=== PATIENT | male | born 1950 | race Two or more races ===

== ENCOUNTER 2018-12-25 17:00 | Emergency (ER) | payer MEDICARE ==
[~2018-12-25] VITALS: Ht 172.7 cm; Wt 108.9 kg
[~2018-12-25 17:00] MED LIST: AMLO5TAB92; DULO60CA41 PO; LABE300T3 PO; LISI20TA PO; SPIR25TA PO
[2018-12-25 17:05] VITALS: BP_SYST 114
--- NOTE | 2018-12-25 17:13 | NUR ---
Patient to ER bed 05 to gown for evaluation. Side rails up. Report given to SHAHID SANCHEZ
[2018-12-25] MEDS ORDERED: NACL 0.9% 1,000 ML IV ONE ×2 (17:15→19:15)
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
--- NOTE | 2018-12-25 17:35 | NUR ---
ER Dr. Cancino at bedside examining patient.
[2018-12-25 17:40] LABS: BASOPHILS # (AUTO) 0.1 K/uL (0.0-0.2); BASOPHILS % (AUTO) 0.7 % (0.0-2.0); EOSINOPHILS # (AUTO) 0.2 K/uL (0.0-0.4); EOSINOPHILS % (AUTO) 2.8 % (0.0-4.0); HEMATOCRIT 39.3 % (36-54); HEMOGLOBIN 13.6 g/dL (14.0-18.0); LYMPHOCYTES # (AUTO) 1.9 K/uL (1.0-5.5); LYMPHOCYTES % (AUTO) 24.9 % (20.5-51.5); MEAN CORPUSCULAR HEMOGLOBIN 32 pg (27-31); MEAN CORPUSCULAR HGB CONC 35 % (32-36); MEAN CORPUSCULAR VOLUME 92 fL (79.0-98.0); MONOCYTES # (AUTO) 0.7 K/uL (0.0-1.0); MONOCYTES % (AUTO) 8.8 % (1.7-9.3); NEUTROPHILS # (AUTO) 4.9 K/uL (1.8-7.7); NEUTROPHILS % (AUTO) 62.8 % (40.0-70.0); PLATELET COUNT (AUTO) 198 K/uL (130-430); RED BLOOD CELL COUNT(AUTO) 4.25 MIL/uL (4.2-6.2); RED CELL DISTRIBUTION WIDTH 14.5 % (9.0-15.0); WHITE BLOOD COUNT (AUTO) 7.8 K/uL (4.8-10.8)
[2018-12-25 17:53] LABS: CALCIUM 8.4 mg/dL (8.4-11.0); CREATININE 1.56 mg/dL (0.55-1.30); POTASSIUM 3.2 mmol/L (3.5-5.1)
[2018-12-25 17:58] LABS: INR 1.1 (0.80-1.20); PROTHROMBIN TIME 10.9 SECS (9.5-12.5)
[2018-12-25 17:59] LABS: ALBUMIN 3.5 g/dL (3.4-4.8); TOTAL BILIRUBIN 1.3 mg/dL (0.0-1.0)
[2018-12-25] MEDS ORDERED: MORPHINE 2 MG/ML INJ. SYRINGE IVP ONE ×2 (18:00→18:45)
--- NOTE | 2018-12-25 18:05 | NUR ---
Attempted 20guage IV to L hand. Swelling noted to site upon flushing site, pt denies pain. Infiltration noted. IV discontinued 2mg Morphine administered IM to L deltoid. Dr. Barak jeong.
--- NOTE | 2018-12-25 18:08 | NUR ---
PT taken to radiolgoy via [facility]
--- NOTE | 2018-12-25 18:20 | NUR ---
Pt returned from radiolgy via [facility].
--- NOTE | 2018-12-25 19:01 | NUR ---
Unable to pull out morphine 2mg from pyxis due to failed drawer. Pharmacy called and tech will come to ED to troubleshoot.
[2018-12-25] MEDS ORDERED: POTASSIUM CHLORIDE 20 MEQ TAB.PRT.SR PO ONE (19:30)
[2018-12-25 20:13] VITALS: BP_SYST 119
--- NOTE | 2018-12-25 20:13 | NUR ---
Patient given written and verbal discharge instructions and verbalizes understanding. ER MD discussed with patient the results and treatment provided. Patient in stable condition. ID arm band removed. IV catheter removed intact and dressing applied, no active bleeding. Rx of [place] given. Patient educated on pain management and to follow up with PMD. Pain Scale 0. Opportunity for questions provided and answered. Medication side effect fact sheet provided.
[2018-12-25] MEDS ORDERED: HYDROcodone/ACETAMIN 5-325 MG TAB (NORCO/ VICODIN) PO ONE (20:15)
== END 2018-12-25 20:13 | disposition home or self-care (01) ==
LOC: SED 17:00
DX: M54.41 Lumbago with sciatica, right side (principal); I10 Essential (primary) hypertension; F32.9 Major depressive disorder, single episode, unspecified; Z79.899 Other long term (current) drug therapy
CPT/HCPCS: 36415; 70450; 71045; 72131; 80053; 83605; 84484; 85025; 85610; 85730; 87040; 93005; 96361; 96372; 96374; 99284; J2270; J7030

== ENCOUNTER 2019-07-11 02:23 | Emergency (ER) | payer MEDICARE ==
[~2019-07-11] VITALS: Ht 172.7 cm; Wt 102.1 kg
[2019-07-11 02:30] VITALS: BP_SYST 173
[2019-07-11] MEDS ORDERED: MINERAL OIL 133 ML ENEMA RC ONE ×2 (03:15→04:00)
[2019-07-11 04:45] VITALS: BP_SYST 173
== END 2019-07-11 04:45 | disposition home or self-care (01) ==
LOC: SED 02:23
DX: K59.00 Constipation, unspecified (principal); I10 Essential (primary) hypertension; Z86.73 Personal history of transient ischemic attack (TIA), and cerebral infarction without residual deficits; Z79.899 Other long term (current) drug therapy
CPT/HCPCS: 99281